=== PATIENT | male | born 1975 | race African-American/Black ===

== ENCOUNTER 2017-03-08 21:44 | Emergency (ER) | payer MEDICAID ==
[~2017-03-08] VITALS: Wt 71.5 kg
[2017-03-08] MEDS ORDERED: ASPI-664 PO (23:02)
[2017-03-08] MEDS ORDERED: TML25OP5 BOTH EYES (23:02)
[2017-03-08] MEDS ORDERED: HYDR12.58 PO (23:02)
[2017-03-08] MEDS ORDERED: MULTI PO (23:02)
[2017-03-08] MEDS ORDERED: KETOROLAC 60 MG INJ IM STA (23:07)
--- NOTE | 2017-03-09 00:16 | RADRPT ---
PROCEDURE: XR Wrist. CLINICAL INDICATION: Trauma. Pain. TECHNIQUE: AP, lateral and oblique views of the left wrist were performed. COMPARISON: No prior studies are available for comparison. FINDINGS: There is a comminuted slightly impacted fracture of the distal radial metadiaphysis with mild dorsal displacement. There is a minimally displaced ulnar styloid fracture. Lateral view suggested a triq uetrum fracture, not well characterized. Joint relationships are maintained. Bone mineralization i s within normal limits. Soft tissues are unremarkable. IMPRESSION: 1. Comminuted slightly impacted distal radial metaphyseal fracture with mild dorsal displacement. 2. Minimally displaced ulnar styloid fracture. 3. Limited lateral view with possible triquetrum fracture. RPTAT: HMVK .Cali Greco MD, Date Time Electronically viewed and signed by .Cali Greco MD, on 03/09/2017 00:15 .K/
[2017-03-09] MEDS ORDERED: HYDROCODONE/APAP (10/325) TAB PO ONE (01:00)
[2017-03-09] MEDS ORDERED: NAPR-688 PO (01:43)
[2017-03-09] MEDS ORDERED: HYDR-906 PO (01:43)
[2017-03-09] MEDS ORDERED: DIPHTH/TET/ACEL PERTUSS (ADULT) 0.5 ML VIAL IM* ONE (02:00)
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
[2017-03-09 02:30] VITALS: BP 185/132; PULSE 92; RESP 18
[2017-03-09] MEDS ORDERED: NICARDipine HCL 30 MG CAPSULE PO ONE (02:30)
== END 2017-03-09 02:32 | disposition home or self-care (01) ==
LOC: E/R 21:44
DX: S52.612A Displaced fracture of left ulna styloid process, initial encounter for closed fracture (principal); S52.502A Unspecified fracture of the lower end of left radius, initial encounter for closed fracture; I10 Essential (primary) hypertension; F17.210 Nicotine dependence, cigarettes, uncomplicated; W18.39XA Other fall on same level, initial encounter; Y92.9 Unspecified place or not applicable; Z23 Encounter for immunization; Z79.82 Long term (current) use of aspirin
CPT/HCPCS: 29125; 73110; 90471; 90715; 96372; J1885; Z7502; Z7610